=== PATIENT | male | born 1970 | race Caucasian/White ===

== ENCOUNTER 2018-12-28 19:57 | Emergency (ER) | payer OTHER ==
[~2018-12-28] VITALS: Ht 170.2 cm; Wt 78.2 kg
[2018-12-28 20:46] VITALS: Ht 170.2 cm; Wt 78.2 kg
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
[2018-12-28] MEDS ORDERED: HYDROCODONE/APAP (10/325) TAB PO ONE (21:30)
[2018-12-29] MEDS ORDERED: META-121 PO (01:13)
[2018-12-29] MEDS ORDERED: IBUP-1542 PO (01:13)
[2018-12-29 01:42] VITALS: BP 159/85; PULSE 59; RESP 18
== END 2018-12-29 01:44 | disposition home or self-care (01) ==
LOC: FTE 19:57
DX: S30.1XXA Contusion of abdominal wall, initial encounter (principal); S20.219A Contusion of unspecified front wall of thorax, initial encounter; S10.93XA Contusion of unspecified part of neck, initial encounter; V43.52XA Car driver injured in collision with other type car in traffic accident, initial encounter
CPT/HCPCS: 36415; 71250; 72125; 74176; 80053; 83690; 85025